=== PATIENT | female | born 1955 | race Caucasian/White ===

== ENCOUNTER 2023-08-30 03:12 | Emergency (ER) | payer OTHER ==
[~2023-08-30] VITALS: Ht 160 cm; Wt 72.1 kg
[2023-08-30 04:00] VITALS: O2SAT 98
[2023-08-30] MEDS: CLONIDINE HCL 0.1 MG TABLET PO ONE (04:45)
[2023-08-30 04:52] LABS: *BILIRUBIN,URIN NEGATIVE (NEGATIVE); *BLOOD, URINE NEGATIVE (NEGATIVE); *CLARITY,URINE CLEAR (CLEAR); *COLOR,URINE YELLOW (YELLOW); *KETONES,URINE NEGATIVE (NEGATIVE); *PROTEIN,URINE NEGATIVE (NEGATIVE); *UROBILINOGEN,URINE 0.2 E.U./dl (NORMAL); LEUKOCYTE ESTERASE ,URINE NEGATIVE (NEGATIVE); NITRITE, URINE NEGATIVE (NEGATIVE); PH,URINE 6.5 (5.0-8.0); UGLUCOSE NEGATIVE (NEGATIVE)
[2023-08-30] MEDS ORDERED: CLONIDINE HCL 0.1 MG TABLET ONE (04:52)
[2023-08-30] MEDS ORDERED: CLON0.1T PO (05:01)
[2023-08-30] MEDS ORDERED: ONDANSETRON ODT 4 MG TAB.RAPDIS ONE (05:16)
[2023-08-30] MEDS ORDERED: HYDROCODONE/APAP 5-325MG TABLET ONE (05:17)
[2023-08-30] MEDS: ONDANSETRON ODT 4 MG TAB.RAPDIS SL ONE (05:20)
[2023-08-30] MEDS: HYDROCODONE/APAP 5-325MG TABLET PO ONE (05:20)
[2023-08-30 06:03] VITALS: BP 149/72
== END 2023-08-30 05:50 | disposition home or self-care (01) ==
LOC: ER 03:21
DX: I10 Essential (primary) hypertension (principal); E03.9 Hypothyroidism, unspecified; Z79.899 Other long term (current) drug therapy
CPT/HCPCS: 93005; A4606; A4663; Q0162